=== PATIENT | female | born 1970 | race Caucasian/White ===

== ENCOUNTER → 2018-05-28 | Outpatient (CLI) | payer OTHER ==
--- NOTE | 2018-05-28 12:58 | XR ---
EXAMINATION TYPE: XR lumbar spine 2 or 3V DATE OF EXAM: 05/28/2018 CLINICAL HISTORY: Low back pain from heavy lifting injury at work TECHNIQUE: Frontal and lateral images of the lumbar spine are obtained. COMPARISON: None FINDINGS: There are 5 lumbar type vertebral bodies identified. The lumbar spine shows satisfactory alignment without evidence of acute fracture or dislocation. There is mild disc space narrowing L5-S1 level otherwise vertebral body heights and disk space heights are within normal limits. Minimal ante rior spurring superior anterior L3 and L4 endplates is noted. Mild vascular calcification of overlyin g abdominal aorta is seen. IMPRESSION: No acute fracture or dislocation is seen in the lumbar spine.
== END | disposition home or self-care (01) ==
LOC: RADXRMAIN 12:13
PROVIDERS: ATTEND Emergency Medicine
DX: M54.16 Radiculopathy, lumbar region (principal)
CPT/HCPCS: 72100

== ENCOUNTER → 2018-06-27 | Outpatient (CLI) | payer OTHER ==
--- NOTE | 2018-06-30 16:42 | MR ---
EXAMINATION TYPE: MR lumbar spine wo con DATE OF EXAM: 06/27/2018 COMPARISON: Radiograph 05/28/2018 HISTORY: 48-year-old female LUMBAR SPRAIN, PAIN X 1 MONTH TECHNIQUE: Multiplanar, multisequence images of the lumbar spine were acquired. 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 Vertebral body heights are preserved and alignment is maintained. There is mild heterogeneity of marrow signal without suspicious bone marrow replacement. Facet arthropathy is present mid to lower lumbar spine. Additional mild multilevel degenerative disc disease characterized by variable mild disc desiccation, disc bulging, and minimal disc interspace narrowing, particularly at L5-S1. Conus medullaris is normal. A few small T2 hyperintense lesions within the left kidney, likely cyst. Partially visualized nodular ity left adrenal gland measuring at least 1.1 cm, statistically, this represents a benign adrenal orin noma. No prevertebral or paravertebral soft tissue abnormality seen. At T12-L1, no spinal canal or neuroforaminal stenosis. At L1-L2, mild diffuse disc bulge without significant canal or foraminal stenosis. At L2-L3, diffuse disc bulge accentuating the mild congenital spinal canal narrowing at this level. N o significant neural foraminal stenosis. At L3-L4, mild facet arthropathy without canal or foraminal stenosis. At L4-L5, there is facet degenerative change without significant canal or foraminal stenosis. At L5-S1, there is facet arthropathy with diffuse bulging disc, asymmetric towards the right. There i s some associated fatty Modic type II endplate change at this level. No significant spinal canal sten osis. However, changes result in moderate right and mild left neuroforaminal stenosis. Disc material also abuts and likely impinges the traversing right S1 nerve root at this level and closely approache s and may abut the traversing left S1 nerve root at this level. IMPRESSION: 1. Mild multilevel degenerative disc disease, more moderate at L5-S1 where disc bulge is eccentric to wards the right and may impinge the traversing right S1 nerve root. 2. Along with facet arthropathy, changes result in moderate right and mild left neuroforaminal stenos is at L5-S1. 3. Bulging disc at L2-L3 accentuates the mild congenital spinal canal narrowing at this level.
== END | disposition home or self-care (01) ==
LOC: RADMRIMAIN 07:17
PROVIDERS: ATTEND Emergency Medicine
DX: M99.73 Connective tissue and disc stenosis of intervertebral foramina of lumbar region (principal); M99.74 Connective tissue and disc stenosis of intervertebral foramina of sacral region; M51.27 Other intervertebral disc displacement, lumbosacral region; M51.37 Other intervertebral disc degeneration, lumbosacral region; M46.96 Unspecified inflammatory spondylopathy, lumbar region; Q76.49 Other congenital malformations of spine, not associated with scoliosis; S39.012D Strain of muscle, fascia and tendon of lower back, subsequent encounter
CPT/HCPCS: 72148

== ENCOUNTER 2018-11-18 07:33 | Day surgery (SDC) | payer OTHER ==
[2018-11-14 12:29] VITALS: BMI 40.6
[~2018-11-18 07:33] MED LIST: DEXAMETHASONE SOD PHOSPHATE 10 MG/ML 1 ML VIAL IV ONE; LACTATED RINGERS 1,000 ML IV SCH; ONDANSETRON 4 MG/2 ML VIAL IVP ONE; ONDANSETRON 4 MG/2 ML VIAL IVP PRN
[2018-11-18 08:00] VITALS: RESP 16; TEMP 97.8
[2018-11-18] MEDS ORDERED: LIDOCAINE 1% INJ 10MG/ML (20 ML MDV) ONE (08:19)
[2018-11-18] MEDS ORDERED: PROPOFOL 10 MG/ML 20 ML VIAL IV ONE (08:19)
[2018-11-18] MEDS ORDERED: fentaNYL (PF) 50 MCG/ML 2 ML AMP ONE (08:19)
[2018-11-18] MEDS ORDERED: MIDAZOLAM 2 MG/2 ML VIAL ONE (08:19)
[2018-11-18 08:44] VITALS: PULSE 74
--- NOTE | 2018-11-18 08:48 | P.PCN ---
Date of Procedure: 11/18/18 Procedure(s) Performed: Procedure: Total colonoscopy. Preoperative diagnosis: History of polyps and intermittent rectal bleeding. Postoperative diagnosis: Exam within normal limits. Preparation: HalfLytely prep. Sedation: Was provided by anesthesia. Brief clinical history: The patient is a 48-year-old female who is scheduled for this evaluation for intermittent rectal bleeding and history of polyps. She had a prior exam for a 5 years ago. The patient has no abdominal complaints or anemia, she does have history of irritable bowel syndrome with alternating bowel movements. Procedure: With the patient on her left lateral decubitus position and after informed consent and adequate sedation, the perianal area was inspected and it did not show any fissures or fistulas. There were no masses felt on digital rectal examination. The Olympus CFH 190L Was then inserted in the rectum in the usual fashion and advanced to the cecum. The mucosa appeared healthy. No polyps or tumors were seen. No obvious diverticular disease or other pathology. I retroflexed the endoscope in the rectum before the endoscope was withdrawn. The patient tolerated the procedure well. Plan: The patient was reassured. It is possible that her intermittent rectal bleeding is secondary to perianal pathology such as superficial fissures or hemorrhoids. I recommended local care and dietary measures as needed. She will follow-up with you as planned and I recommended repeat exam in 5 years.
[2018-11-18 09:01] VITALS: BP 113/77
== END 2018-11-18 09:14 | disposition home or self-care (01) ==
LOC: ORWHC2ENDO 07:33
DX: K62.5 Hemorrhage of anus and rectum (principal); K58.2 Mixed irritable bowel syndrome; I10 Essential (primary) hypertension; R73.03 Prediabetes; F41.9 Anxiety disorder, unspecified; F17.210 Nicotine dependence, cigarettes, uncomplicated; Z86.010 Personal history of colon polyps; Z79.1 Long term (current) use of non-steroidal anti-inflammatories (NSAID); Z79.899 Other long term (current) drug therapy; Z88.8 Allergy status to other drugs, medicaments and biological substances
CPT/HCPCS: 45378; J2250; J2001; J3010; J2704

== ENCOUNTER 2022-02-12 14:50 | Emergency (ER) | payer OTHER ==
[2022-02-12 14:54] VITALS: RESP 16
[2022-02-12] MEDS ORDERED: SODIUM CHLORIDE 0.9% 1,000 ML IV STA (15:20)
--- NOTE | 2022-02-12 15:40 | ED ---
General Adult HPI - General Chief complaint: Upper Respiratory Infection Stated complaint: Headache,SOB,Fever Time Seen by Provider: 02/12/22 14:55 Source: patient, RN notes reviewed, old records reviewed Mode of arrival: ambulatory Limitations: no limitations - History of Present Illness Initial comments: Patient is a 51-year-old female with past medical history remarkable for hypertension,smoking with COPD, irritable bowel syndrome, was not vaccinated for Covid who presents concerned for Covid infection. Patient has a 2-3 day history remarkable for a mild tension-like headache, some mild weakness, subjective fevers, chills, cough, sore throat. She also endorses some mild nausea. Denies diarrhea. States she feels ill. Once be evaluated for COVID-19. Denies chest pain, abdominal pain. No known sick contacts. She presents for further ev aluation at this time. - Related Data Home Medications Medication Instructions Recorded Confirmed ALPRAZolam [Xanax] 1 mg PO BID PRN 04/16/15 11/18/18 Potassium Chloride [Klor-Con 10] 10 meq PO DAILY 11/14/18 11/18/18 Triamterene-Hctz 37.5-25Mg 1 cap PO DAILY 11/14/18 11/18/18 [Dyazide 37.5-25 Capsule] lisinopriL [Zestril] 20 mg PO DAILY 11/14/18 11/18/18 Previous Rx's Medication Instructions Recorded Ibuprofen [Motrin] 800 mg PO Q6HR PRN #30 tab 05/19/15 Dexamethasone [Decadron] 6 mg PO DAILY 7 Days #7 tablet 02/12/22 Allergies Allergy/AdvReac Type Severity Reaction Status Date / Time MEDROL DOSE PACK Allergy HEART Uncoded 02/12/22 14:51 RACING/ELEVATED B/P Review of Systems ROS Statement: Those systems with pertinent positive or pertinent negative responses have been documented in the HPI. ROS Other: All systems not noted in ROS Statement are negative. Past Medical History Past Medical History: Hypertension Additional Past Medical History / Comment(s): IBS History of Any Multi-Drug Resistant Organisms: None Reported Past Surgical History: Tubal Ligation, Uterine Ablation Additional Past Surgical History / Comment(s): uterine ablation, sinus SX. COLONOSCOPY Past Anesthesia/Blood Transfusion Reactions: No Reported Reaction Past Psychological History: Anxiety Smoking Status: Current every day smoker Past Alcohol Use History: None Reported Past Drug Use History: None Reported - Past Family History Mother Family Medical History: No Reported History General Exam - General Exam Comments Initial Comments: Review of Systems: CONST: Endorses fever EYES: Denies blurry vision ENT: Endorses nasal congestion C/V: Denies Chest pain RESP: Denies shortness of breath GI: Denies abdominal pain : Denies dysuria SKIN: Denies rash. MSK: Denies joint pain. NEURO: Endorses mild tension-like headache Limitations: no limitations Course Vital Signs 02/12/22 02/12/22 02/12/22 14:51 16:09 17:08 Temperature 98 F 98.2 F Pulse Rate 107 H 85 95 Respiratory 16 16 16 Rate Blood Pressure 145/84 138/91 136/80 O2 Sat by Pulse 93 L 94 L 95 Oximetry Medical Decision Making - Medical Decision Making Based on the patient's presentation and physical exam, I do believe she may have a COVID-19 infection. Patient is mildly hypoxic on room air to 93%. She is in no respiratory distress. The remainder the vitals are unremarkable. Believe she may be dehydrated. I did offer her basic labs that she accepted. COVID-19 study is pending at this time. Chest x-ray will also be obtained. I answered multiple questions regarding COVID-19 the possible therapies. She expressed understanding. Patient is Covid positive. Chest x-ray shows bilateral interstitial infiltrates. Likely secondary to Covid. Laboratory studies are remarkable for a hypokalemia at 3.3 which is chronic and will be replenished. Remainder of the labs are relatively unremarkable. On reevaluation, vital signs remained within normal limits. Did discuss medical management with the patient. She consented to treatment. She also receive a dose of decadron as well as a prescription for Decadron due to her history of COPD and having an active Covid 19 infection. She was in agreement this plan. We discussed obtaining a pulse oximeter for home and to return to the emergency department as pulse ox reads 90% or less persistently. She was in agreement t his plan. She'll follow up with her physician this week. Patient tolerated the therapy well. She'll be discharged home after a period of observation. Patient has inhalers in the past at home.Patient states she had a Medrol Dosepak approximately 10 years previously. States few days after taking, blood pressure elevated. It is uncertain if she is ALLERGIC to it. Did not have any difficulty in breathing or rashes at that time. I will provide the patient with a prescription for Decadron. I instructed the patient to follow up with their PCP in the next 3 days. I explained that the patient should return to the emergency department if they experience any worsening symptoms. Strict return precautions were discussed with the patient. The patient expressed understanding of these instructions. I answered all questions that the patient had. The patient was discharged home in good condition with their prescriptions and follow up information. - Lab Data Result diagrams: 02/12/22 15:35 02/12/22 15:35 Lab Results 02/12/22 02/12/22 02/12/22 Range/Units 14:55 15:35 15:35 WBC 3.6 L (3.8-10.6) k/uL RBC 4.98 (3.80-5.40) m/uL Hgb 15.6 (11.4-16.0) gm/dL Hct 49.1 H (34.0-46.0) % MCV 98.6 (80.0-100.0) fL MCH 31.4 (25.0-35.0) pg MCHC 31.8 (31.0-37.0) g/dL RDW 13.6 (11.5-15.5) % Plt Count 129 L (150-450) k/uL MPV 9.1 Neutrophils % 41 % Lymphocytes % 46 % Monocytes % 8 % Eosinophils % 1 % Basophils % 3 % Neutrophils # 1.5 (1.3-7.7) k/uL Lymphocytes # 1.6 (1.0-4.8) k/uL Monocytes # 0.3 (0-1.0) k/uL Eosinophils # 0.1 (0-0.7) k/uL Basophils # 0.1 (0-0.2) k/uL Sodium 139 (137-145) mmol/L Potassium 3.3 L (3.5-5.1) mmol/L Chloride 103 (98-107) mmol/L Carbon Dioxide 26 (22-30) mmol/L Anion Gap 10 mmol/L BUN 11 (7-17) mg/dL Creatinine 0.83 (0.52-1.04) mg/dL Est GFR (CKD-EPI)AfAm >90 (>60 ml/min/1.73 sqM) Est GFR (CKD-EPI)NonAf 82 (>60 ml/min/1.73 sqM) Glucose 148 H (74-99) mg/dL Calcium 9.4 (8.4-10.2) mg/dL Coronavirus (PCR) Detected A (Not Detectd) Disposition Clinical Impression: Pneumonia due to COVID-19 virus Disposition: HOME SELF-CARE Condition: Fair Instructions (If sedation given, give patient instructions): COVID-19 (Coronavirus Disease 2019) (ED) Additional Instructions: Recommend obtaining a pulse oximeter to monitor oxygen levels. Please seek medical attention if persistent oxygenation levels less than 90%. Prescriptions: Dexamethasone [Decadron] 6 mg PO DAILY 7 Days #7 tablet Is patient prescribed a controlled substance at d/c from ED?: No Referrals: Marc Dobson MD [Primary Care Provider] - 1-2 days Time of Disposition: 16:35
[2022-02-12 15:41] LABS: Basophils # (A) 0.1 k/uL (0-0.2); Basophils % (A) 3 %; Eosinophils # (A) 0.1 k/uL (0-0.7); Eosinophils % (A) 1 %; HCT 49.1 % (34.0-46.0); HGB 15.6 gm/dL (11.4-16.0); Lymphocytes # (A) 1.6 k/uL (1.0-4.8); Lymphocytes % (A) 46 %; MCH 31.4 pg (25.0-35.0); MCHC 31.8 g/dL (31.0-37.0); MCV 98.6 fL (80.0-100.0); Mean Platelet Volume 9.1; Monocytes # (A) 0.3 k/uL (0-1.0); Monocytes % (A) 8 %; Neutrophils # (A) 1.5 k/uL (1.3-7.7); Neutrophils % (A) 41 %; Platelet Count 129 k/uL (150-450); RBC 4.98 m/uL (3.80-5.40); RDW 13.6 % (11.5-15.5); WBC 3.6 k/uL (3.8-10.6)
[2022-02-12 15:58] LABS: African American GFR (CKD) >90 (>60 ml/min/1.73 sqM); Anion Gap 10 mmol/L; Blood Urea Nitrogen 11 mg/dL (7-17); Calcium 9.4 mg/dL (8.4-10.2); Carbon Dioxide 26 mmol/L (22-30); Chloride 103 mmol/L (98-107); Glucose 148 mg/dL (74-99); Non-African American GFR(CKD) 82 (>60 ml/min/1.73 sqM); Potassium 3.3 mmol/L (3.5-5.1); Sodium 139 mmol/L (137-145)
[2022-02-12] MEDS ORDERED: POTASSIUM CHLORIDE ER 20 MEQ TAB.ER PO STA (16:07)
[2022-02-12] MEDS ORDERED: BEBTELOVIMAB (EUA) 175 MG/2 ML VIAL IV ONE (16:15)
--- NOTE | 2022-02-12 16:18 | XR ---
EXAMINATION TYPE: XR chest 1V portable DATE OF EXAM: 02/12/2022 COMPARISON: NONE HISTORY: Short of breath TECHNIQUE: Single view FINDINGS: Heart and mediastinum are normal. Lungs are clear. Diaphragm is normal. Bony thorax appears normal. IMPRESSION: Normal chest
[2022-02-12] MEDS ORDERED: dexAMETHasone 2 MG TAB PO STA (16:35)
[2022-02-12] MEDS ORDERED: ACETAMINOPHEN TAB 500 MG TAB PO STA (16:38)
[2022-02-12 17:09] VITALS: BP 136/80; PULSE 95; TEMP 98.2
== END 2022-02-12 17:12 | disposition home or self-care (01) ==
LOC: EC 14:50
DX: U07.1 COVID-19 (principal); J12.82 Pneumonia due to coronavirus disease 2019; J44.0 Chronic obstructive pulmonary disease with (acute) lower respiratory infection; F17.200 Nicotine dependence, unspecified, uncomplicated; I10 Essential (primary) hypertension; Z88.8 Allergy status to other drugs, medicaments and biological substances; Z79.899 Other long term (current) drug therapy
CPT/HCPCS: 36415; 80048; 85025; 87635; 71045; 99285; 96360; J8540; Q0222

== ENCOUNTER 2023-08-01 09:03 | Day surgery (SDC) | payer BC ==
[2023-07-30 12:28] VITALS: BMI 34.9
[~2023-08-01 09:03] MED LIST changes: -DEXAMETHASONE SOD PHOSPHATE 10 MG/ML 1 ML VIAL IV ONE; +LIDOCAINE 1% (10MG/ML) FOR IV START INTRADERMA PRN; -ONDANSETRON 4 MG/2 ML VIAL IVP ONE; -ONDANSETRON 4 MG/2 ML VIAL IVP PRN
[2023-08-01 10:23] LABS: Glucose,Whole Blood 109 mg/dL (70-110)
[2023-08-01 10:36] VITALS: TEMP 97.6
[2023-08-01] MEDS ORDERED: PROPOFOL 10 MG/ML 20 ML VIAL IV ONE (11:13)
--- NOTE | 2023-08-01 11:29 | P.PCN ---
Date of Procedure: 08/01/23 Procedure(s) Performed: BRIEF HISTORY: Patient is a 53-year-old pleasant white female scheduled for an elective colonoscopy as a part of evaluation of change in bowel habits and history of colon polyps PROCEDURE PERFORMED: Colonoscopy with biopsy. PREOPERATIVE DIAGNOSIS: Change in bowel habits and history of colon polyps. IV sedation per Anesthesia. PROCEDURE: After informed consent was obtained, the patient, was brought into the endoscopy unit. IV sedation was administered by Anesthesia under continuous monitoring. Digital rectal examination was normal. Initially the Olympus CF-160 flexible video colonoscope was then inserted in the rectum, gradually advanced into the cecum without any difficulty. Careful examination was performed as the scope was gradually being withdrawn. Ileocecal valve and the appendiceal orifice were visualized and appeared normal. Prep was excellent. Mucosa of the cecum, ascending colon, transverse colon, descending colon, sigmoid colon, and rectum appeared normal. There were 2 small proximal rectal polyps measuring 3 mm in size and removed by cold biopsy. Scattered sigmoid diverticulosis. Retroflexion was performed in the rectum and no lesions were seen. The patient tolerated the procedure well. IMPRESSION: Scattered sigmoidal diverticulosis 3 mm 2 proximal rectal polyp status post cold biopsy RECOMMENDATIONS: Findings of this examination were discussed with the patient as well as his family. She was advised to follow with the biopsy results. If the biopsy results adenoma she can have a repeat colonoscopy in 5 years..
[2023-08-01 11:43] LABS: Glucose,Whole Blood 96 mg/dL (70-110)
[2023-08-01 12:07] VITALS: BP 127/80; PULSE 75; RESP 14
== END 2023-08-01 12:00 | disposition home or self-care (01) ==
LOC: ORWHC2ENDO 09:03
PROVIDERS: ATTEND Internal Medicine Gastroenterology
DX: K62.1 Rectal polyp (principal); K57.30 Diverticulosis of large intestine without perforation or abscess without bleeding; I10 Essential (primary) hypertension; F17.200 Nicotine dependence, unspecified, uncomplicated; E11.9 Type 2 diabetes mellitus without complications; F41.9 Anxiety disorder, unspecified; K58.9 Irritable bowel syndrome, unspecified; Z79.899 Other long term (current) drug therapy; Z86.010 Personal history of colon polyps; Z98.890 Other specified postprocedural states
CPT/HCPCS: 88305; 45380; J2704